=== PATIENT | female | born 1960 | race Caucasian/White ===

== ENCOUNTER → 2017-08-29 | Outpatient (CLI) | payer BC, MEDICARE, MEDICAID ==
[~2017-08-29] VITALS: Ht 160 cm; Wt 127.0 kg
[~2017-08-29] MED LIST: ACET-2422 PO; ACID1TAB PO; ALBU18HF2 IH; ALEN70SO3 PO; ALEN70TA47 PO; ALPR0.5T7 PO; AMLO10TA2 PO; AMLO5TAB2 PO; AMPH20TA2 PO; APIX2.5T PO; ASCO100025 PO; ASPI-999 PO; BUDE10.2 IH; CALC-987 PO; CEFT2FRO2 IV; CHOL20002 PO; DESV50TA14 PO; DEXT20TA8 PO; DULO60CA58 PO; EPIN0.3P2 IJ; FERR324T7 PO; FURO-124 PO; FURO40TA4 PO; HYDR200T46 PO; IMIP75CA PO; LEVO200T6 PO; LORA1TAB59 PO; MONT10TA21 PO; MONT10TA24 PO; NORT10CA PO; OMEP40CA36 PO; OMG1KC PO; PARO40TA3 PO; POTA20PA4 PO; POTA20TA8 PO; PRED10TA22 PO; RANI150T11 PO; RANI150T90 PO; RT-ALBUINH IH; TR1C15 TP; TRAM1TAB56 PO; TRAM1TAB7 PO; TRIA80OI TP; VITA150T PO; [UNRECOGNIZED DRUG - CODE] PO
[2017-08-29 13:30] VITALS: BP 162/67
[2017-08-29 15:05] VITALS: BP 162/67
--- NOTE | 2017-08-29 15:11 | Diagnostic Imaging Report ---
INDICATION: PICC line placement. TIME OF EXAM: 02:55 p.m. COMPARISON: Comparison is made with prior exam from 08/11/2017. FINDINGS: A left upper extremity PICC line has been placed and has its tip in good position overlying the SVC. The heart is enlarged. No infiltrates are seen. No effusion or pneumothorax is identified. Scattered granulomas in both lungs are again noted. IMPRESSION: Satisfactory PICC line placement. Dictated by: Dictated on workstation # [id number]
== END ==
LOC: SDC 13:11
PROVIDERS: ATTEND Podiatrist
DX: Z45.2 Encounter for adjustment and management of vascular access device (principal)
CPT/HCPCS: 36569; 71045; 76937